=== PATIENT | female | born 1940 | race Caucasian/White ===

== ENCOUNTER → 2018-10-07 12:39 | Outpatient (CLI) | payer MEDICARE, SELFPAY | PROVIDERS: Family Provider Internal Medicine; PCP Internal Medicine; Visit Provider Internal Medicine | DX: M85.88 Other specified disorders of bone density and structure, other site (principal); Z78.0 Asymptomatic menopausal state; Z90.722 Acquired absence of ovaries, bilateral | CPT/HCPCS: 77080 ==

== ENCOUNTER → 2021-04-14 10:33 | Outpatient (CLI) | payer MEDICARE, SELFPAY ==
[2021-04-14 11:44] LABS: Alanine Aminotransferase 12 IU/L (<35); Albumin Globulin Ratio 1.4 (1.0-2.8); Alkaline Phosphatase 98 U/L (38-126); Amylase 52 U/L (30-110); Aspartate Aminotransferase 20 IU/L (14-36); BUN Creatinine Ratio 36.8 (6-22); Bilirubin Total 0.4 mg/dL (0.2-1.3); Blood Urea Nitrogen 21 mg/dL (7-17); Calcium 8.8 mg/dL (8.4-10.2); Carbon Dioxide 29 mmol/L (22-32); Chloride 106 mmol/L (98-107); Estimated Glomerular Filt Rate > 60.0 mL/min (>60); Globulin 2.8 g/dL (1.7-4.1); Glucose 112 mg/dL (80-110); HEMOLYSIS < 15 (0-50); Lipase 46 U/L (23-300); Potassium 4.1 mmol/L (3.4-5.1); Sodium 141 mmol/L (137-145); Total Protein 6.8 g/dL (6.3-8.2)
[2021-04-14 11:49] LABS: RBC Morphology Normal Morphology; Total Cells Counted 100
[2021-04-14 11:52] LABS: Hematocrit 41.8 % (36-46); Hemoglobin 13.8 g/dL (12.0-16.0); Mean Corpuscular HGB Conc 33.1 % (30-36); Mean Corpuscular Hemoglobin 30.2 PG (26-34); Mean Corpuscular Volume 91.3 fL (80-100); Neutrophils Absolute Manual 3762 /uL (3000-5900); Platelet Count 205 X10^3/uL (150-400); Red Blood Cell Count 4.58 X10^6/uL (4.0-5.2); Red Cell Distribution Width 13.5 % (11.6-14.8); White Blood Cell Count 5.7 X10^3/uL (4.5-11.0)
[2021-04-14 13:30] LABS: TSH w/ Reflex to FT4 2.21 uIU/mL (0.47-4.68)
== END ==
PROVIDERS: Family Provider Internal Medicine; PCP Internal Medicine; Referring Provider Internal Medicine; Visit Provider Internal Medicine
DX: R19.7 Diarrhea, unspecified (principal)
CPT/HCPCS: 36415; 80053; 82150; 83690; 84443; 85025

== ENCOUNTER → 2021-04-15 12:47 | Outpatient (CLI) | payer MEDICARE, SELFPAY ==
--- NOTE | 2021-04-15 14:14 | DI.CT.S_ITS ---
PROCEDURE: CT ABDOMEN PELVIS W CON INDICATIONS: llq pain TECHNIQUE: After the administration of oral and intravenous contrast, 5 mm thick sections acquired from the diaphragms to the symphysis. 5 mm thick coronal and sagittal reformats were performed. For radiation dose reduction, the following was used: automated exposure control, adjustment of mA and/or kV according to patient size. COMPARISON: None. FINDINGS: ABDOMEN: Lung bases: Normal. Heart: Mildly enlarged Liver: Low-attenuation presumed hepatic cyst measuring 4.5 cm in the right lobe. Gallbladder: Contains sub 5 mm gravel-like calculi/debris. No CT evidence of acute inflammation. Bile ducts: Normal. Pancreas: Diffuse fatty infiltration of the pancreas and atrophy Spleen: Normal. Adrenals: Normal. Kidneys and Ureters: Bilateral peripelvic cysts. No hydronephrosis. Ureters appear decompressed. Stomach and duodenum: Small hiatal hernia. Bowel: Colonic diverticulosis is seen without evidence of acute complication. Moderate stool seen throughout the colon. Appendix is not clearly identified however no suspicious pericecal inflammatory changes are seen. Other: No free fluid or air. Abdominal nodes: Normal. Aorta and IVC: Normal in size. Scattered vascular calcifications incidentally noted in the aorta. Ventral wall: Tiny fat containing periumbilical hernia. PELVIS: Bladder: Normal. Inguinal region: No hernia. There are incidentally noted left inguinal superficial varices. Pelvic nodes: Normal. Bones: Spondylytic changes and facet arthropathy. No vertebral body compression fracture. Diffuse osteopenia. Grade 1 anterolisthesis of L4 on L5. IMPRESSION: Overall, no acute abnormality. Incidentally noted cholelithiasis. Hepatic cyst Bilateral renal cysts. Small hiatal hernia Incidental colonic diverticulosis. No evidence of acute complication. Chronic fatty infiltration of the pancreas. In this setting would be difficult to exclude a low-grade pancreatitis. Please correlate with pancreatic enzymes if clinically indicated. Additional chronic and incidental findings as above. Dictated by: Tanner Liu M.D. on 04/15/2021 at 15:43 Approved by: Tanner Liu M.D. on 04/15/2021 at 15:49
== END ==
PROVIDERS: Family Provider Internal Medicine; PCP Internal Medicine; Referring Provider Internal Medicine; Visit Provider Internal Medicine
DX: R10.32 Left lower quadrant pain (principal); K44.9 Diaphragmatic hernia without obstruction or gangrene; K76.89 Other specified diseases of liver; N28.1 Cyst of kidney, acquired; K80.20 Calculus of gallbladder without cholecystitis without obstruction; K57.90 Diverticulosis of intestine, part unspecified, without perforation or abscess without bleeding
CPT/HCPCS: 74177; Q9967

== ENCOUNTER 2024-08-31 11:38 | Emergency (ER) | payer MEDICARE, SELFPAY ==
[2024-08-31 11:44] VITALS: BP 136/83; PULSE 90; RESP 16; TEMP 36.6; O2SAT 99; BMI 25.1
--- NOTE | 2024-08-31 12:20 | ED.BACK ---
HPI - Back Pain/Injury <Maria Victoria Nichols PA-C - Last Filed: 08/31/24 13:07> General Chief Complaint: Back Pain/Injury Stated Complaint: back px Time Seen by Provider: 08/31/24 12:20 Source: patient History of Present Illness HPI Narrative: Patient is a very pleasant 83-year-old female that presents to the emergency room department today with her . Patient has had right-sided paraspinal back pain and discomfort for the past 5 days. Patient states that she was attempting to scrub a large standing protein tank with a scrub brush 5 days ago, she was attempting to get a large amount of sap that had collected on the propane tank off. She spent a great deal of the day scrubbing the tank, after scrubbing the tank she went into the house and rested, and now has had discomfort and pain in the right side of her back since. She is having difficulty when she stands, when she attempts to lay down, and when she attempts to roll over. She has been using occasional ibuprofen, occasional Tylenol, and heat with minimal relief. She took a hydrocodone today it did help slightly. She has no signs and symptoms of cauda equina. She has no numbness or tingling in the right lower extremity. She has no midline tenderness. She denies recent injury, trauma or fall. She has no other further complaints. Related Data Home Medications Medication Instructions Recorded Confirmed spironolactone 50 mg tablet 50 mg PO DAILY PRN edema 04/14/21 05/30/24 dicyclomine 10 mg capsule 10 - 20 mg PO Q4-6H PRN diarrhea 04/28/22 05/30/24 hyoscyamine sulfate 0.375 mg 0.375 mg PO BID PRN 04/28/22 05/30/24 tablet,extended release,12 hr Previous Rx's Medication Instructions Recorded amlodipine 10 mg tablet 10 mg PO DAILY #90 tabs 04/14/24 tizanidine 2 mg capsule 2 mg PO Q8H PRN muscle spasticity 08/31/24 #10 caps Allergies Allergy/AdvReac Type Severity Reaction Status Date / Time ampicillin [AMPICILLIN] Allergy Mild RASH Verified 08/31/24 11:48 Sulfa (Sulfonamide Allergy Mild Verified 08/31/24 11:48 Antibiotics) [SULFA (SULFONAMIDE ANTIBIOTICS)] Review of Systems <Maria Victoria Nichols PA-C - Last Filed: 08/31/24 13:07> Review of Systems Narrative: Negative except as above Musculoskeletal Comments: Right-sided lower paraspinal lumbar pain with no red flag symptoms Patient History <Maria Victoria Nichols PA-C - Last Filed: 08/31/24 13:07> Medical History Mixed hyperlipidemia Irritable bowel disease Varicose veins (01/22/15) Venous stasis dermatitis (01/22/15) Peripheral edema Cardiac arrhythmia Essential hypertension Social History marital status: number of children: 1 household members: spouse lives independently: Yes caregiver/support person: No housing: house pets and animals: Yes education level: college occupational status: other current occupational exposures/hazards: No Previous occupational history: [employer]. travel history: recent leisure activities: other Smoking Status: Never smoker Tobacco: How many years used: 0 quit status: quit date established second hand exposure: No alcohol intake: current substance use type: does not use Smoking Status: Never smoker Substance Use Type: does not use Exam <Maria Victoria Nichols PA-C - Last Filed: 08/31/24 13:07> Initial Vital Signs Initial Vital Signs: Vital Signs Temperature 97.9 F 08/31/24 11:44 Pulse Rate 90 08/31/24 11:44 Respiratory Rate 16 08/31/24 11:44 Blood Pressure 136/83 08/31/24 11:44 Pulse Oximetry 99 08/31/24 11:44 Oxygen Delivery Method Room Air 08/31/24 11:44 Reviewed Const General: cooperative, healthy appearing, comfortable, well developed, well groomed, No acute distress, No in distress and No anxious Eyes General: Yes appearance normal, both eyes and all related structures Pupils: PERRL EOM: EOM intact bilaterally Back/Spine/Pelvis Back: normal to inspection, back tenderness and No CVA tenderness Thoracic/Lumbar Spine: thoracic and lumbar spine normal to inspection, pain with thoraco-lumbar ROM, paraspinal tenderness and thoraco-lumbar ROM limited Skin Other: Warm pink and dry, Neuro General: patient alert, patient awake, patient oriented x3 and oriented Cranial Nerves: CN's II-XI intact bilaterally Speech: speech normal Extrem Other: Patient able to stand up from the wheelchair under own power using her cane. Patient back exam she has some right-sided paraspinal discomfort and pain, no midline tenderness. She has no pain with straight leg, she has no pain with lifting her right knee to the ceiling. She has no cervical or thoracic midline tenderness. She has no lumbar midline tenderness. She has some buttock tenderness on palpation and some right-sided gluteus discomfort with palpation. Patient is able to ambulate with her cane with minimal discomfort. She is some discomfort with forward flexion. Upper extremity range of motion strength pulses and cap refill are preserved. Psych Other: Patient's appearance, mental status speech, mood, affect, attitude, thought process, thought content and judgment are all appropriate. <Hema Marquez MD - Last Filed: 08/31/24 21:56> Initial Vital Signs Initial Vital Signs: Vital Signs Temperature 97.9 F 08/31/24 11:44 Pulse Rate 90 08/31/24 11:44 Respiratory Rate 16 08/31/24 11:44 Blood Pressure 136/83 08/31/24 11:44 Pulse Oximetry 99 08/31/24 11:44 Oxygen Delivery Method Room Air 08/31/24 11:44 Scores <Maria Victoria Ncihols PA-C - Last Filed: 08/31/24 13:07> GCS Citation: 15 Course <Maria Victoria Nichols PA-C - Last Filed: 08/31/24 13:07> Vital Signs Vital signs: Vital Signs - 8 hr 08/31/24 11:44 08/31/24 12:39 Temperature 97.9 F Pulse Rate 90 80 Respiratory Rate 16 14 Blood Pressure 136/83 103/66 Pulse Oximetry 99 98 Oxygen Delivery Method Room Air Room Air <Hema Marquez MD - Last Filed: 08/31/24 21:56> Vital Signs Vital signs: Vital Signs - 8 hr 08/31/24 11:44 08/31/24 12:39 Temperature 97.9 F Pulse Rate 90 80 Respiratory Rate 16 14 Blood Pressure 136/83 103/66 Pulse Oximetry 99 98 Oxygen Delivery Method Room Air Room Air MDM - Back Pain/Injury <Maria Victoria Nichols PA-C - Last Filed: 08/31/24 13:07> MDM Narrative Medical decision making narrative: Pleasant 83-year-old female presents to the emergency room department with her , she has had a musculoskeletal paraspinal right-sided lower lumbar and right buttock pain for 5 days after spending the day cleaning a stand-up propane tank of sap. Her has been attempting to get her to do supportive therapy [id number] such as topical preparations and taking Tylenol and ibuprofen more on a scheduled basis however the patient has been resistant. She has been using occasional Tylenol ibuprofen and occasional heat. However she presents today with increasing discomfort and pain, so uncomfortable for her to roll over in bed, it is difficult for her to get up from a sitting position. She is attempting to keep active. She does have a history of a previous laminectomy when she was younger. No other surgical interventions in her back. She does not have any red flag symptoms. She appears to be under treating her current symptoms. She is attempting to keep active. Currently at this time I do not think an x-ray is warranted there has been no injury, trauma or fall. She does not have any red flag symptoms. She does not have any radiculopathy symptoms she has no weakness numbness or tingling of the lower extremities. Do not think an x-ray is going to [place] us any information currently at this time examination shows she is muscle spasm and muscle pain associated with paraspinal exam and musculoskeletal discomfort in the right buttock area. We have discussed in great detail [id number] therapy, stretching, muscle treatment at home. We will also discuss topical medications, we have also discussed ibuprofen usage as well as Tylenol usage. I have prescribed a muscle relaxer for her. I have gone over with her in great detail as well as her care that she can do at home, I have also discussed how long most likely the symptoms that she currently has will remain as well as how long it will take for them to improve. Patient understands information education given here in the emergency room department. She is discharged in stable condition. Supportive therapy education ED precautions please see below Differential diagnosis; lumbar spasm, lumbar strain, paraspinal muscle spasm, myofascial strain, sprain. Overuse of lower lumbar muscles. In proper body mechanics associated with cleaning. Discharge Plan Departure Patient Disposition: Home Clinical Impression: Hordeolum externum of right lower eyelid Acute lumbosacral myofascial strain Qualifiers: Encounter type: initial encounter Qualified Code(s): S39.012A - Strain of muscle, fascia and tendon of lower back, initial encounter Strain of lumbar paraspinal muscle Qualifiers: Encounter type: initial encounter Qualified Code(s): S39.012A - Strain of muscle, fascia and tendon of lower back, initial encounter Instructions: DI for Low Back Pain, DI for Back Spasm, DI for Back Strain or Sprain Activity Restrictions/Additional Instructions: 1. Please keep active 2. Ambulate in the home or outside at least 10-15 minutes every 2 hours 3. Take the medications as prescribed be careful with a muscle relaxer it causes sedation no drinking, driving, or operating power equipment. Be very careful with it can cause her to be unsteady, do not want to fall 4. Topical preparations such as diclofenac, Biofreeze, capsaicin, Aspercreme, Salonpas can be used to give local relief. 5. You can take 400-600 mg of ibuprofen/Motrin 3 times a day for discomfort and pain. You can also take Tylenol 500 mg 3 times a day for discomfort and pain. 6. Ice, heat, gentle massage. Slow stretching while sitting in the chair on the couch. 7. This usually takes anywhere from 7-10 days to improve. 8. Please be careful in the near future when attempting to do outside activities take your time. Do not overdo it. 9. Return to the emergency department if you have loss of bowel or bladder, numbness tingling weakness to the lower extremities. 10. Please make an appointment to follow up with her primary care doctor as needed. 11. Return to the emergency department as needed. 12. Prescription has been sent to the [facility] in [place]. Prescriptions: New tizanidine 2 mg capsule 2 mg PO Q8H PRN (Reason: muscle spasticity) Qty: 10 0RF No Action spironolactone 50 mg tablet 50 mg PO DAILY PRN (Reason: edema) amlodipine 10 mg tablet 10 mg PO DAILY Qty: 90 3RF dicyclomine 10 mg capsule 10 - 20 mg PO Q4-6H PRN (Reason: diarrhea) Patient Comments: TAKE ONE TO TWO CAPSULES EVERY 4 - 6 HRS NEEDED FOR DIARRHEA hyoscyamine sulfate 0.375 mg tablet extended release 12 hr 0.375 mg PO BID PRN Patient Comments: TAKE ONE BY MOUTH TWICE A DAY NEEDED Referrals: Blue Cruz MD [Primary Care Provider] - Stand Alone Forms: Patient Portal/API ED Sign-out <Hema Marquez MD - Last Filed: 08/31/24 21:56> Cosign ED Attending Cosignature Attestation: I was immediately available in the department for consultation. This documentation has been reviewed and I agree with assessment and plan. Supervised by Hema Marquez MD
[2024-08-31 12:39] VITALS: BP 103/66; PULSE 80; RESP 14; O2SAT 98
== END 2024-08-31 12:41 | disposition home or self-care (01) ==
PROVIDERS: Emergency Provider Physician Assistant; Family Provider Internal Medicine; PCP Internal Medicine
DX: S39.012A Strain of muscle, fascia and tendon of lower back, initial encounter (principal); X58.XXXA Exposure to other specified factors, initial encounter; H00.012 Hordeolum externum right lower eyelid
CPT/HCPCS: 99281

== ENCOUNTER 2024-09-05 09:59 | Emergency (ER) | payer MEDICARE, SELFPAY ==
[2024-09-05 10:00] VITALS: BP 161/80; PULSE 88; RESP 15; TEMP 36.4; O2SAT 98; BMI 25.8
--- NOTE | 2024-09-05 10:08 | ED_ITS ---
HPI - Back Pain/Injury General Chief Complaint: Back Pain/Injury Stated Complaint: back pain Time Seen by Provider: 09/05/24 10:08 Source: patient History of Present Illness HPI Narrative: Patient is a 83-year-old female history of hypertension chronic low back pain comes into the ED for evaluation of acute on chronic exacerbation of low back pain. Was seen here several days ago for the similar symptoms states that she was attempting to scrub a large tank with a brush and started having some low back pain. She denies any numbness tingling weakness down bilateral lower extremities she is able to stand bear weight and ambulate at her baseline. She denies any bowel or urinary retention or incontinence. She states that she has been taking the medication as prescribed but is having persistent symptoms and states that she did not have imaging therefore comes into the ED for further evaluation treatment. She also states that she had had surgery in the past to her low back so she is worried that something might be wrong with her previous surgery. She denies any other symptoms at this time. Related Data Home Medications Medication Instructions Recorded Confirmed spironolactone 50 mg tablet 50 mg PO DAILY PRN edema 04/14/21 05/30/24 dicyclomine 10 mg capsule 10 - 20 mg PO Q4-6H PRN diarrhea 04/28/22 05/30/24 hyoscyamine sulfate 0.375 mg 0.375 mg PO BID PRN 04/28/22 05/30/24 tablet,extended release,12 hr Previous Rx's Medication Instructions Recorded amlodipine 10 mg tablet 10 mg PO DAILY #90 tabs 04/14/24 tizanidine 2 mg capsule 2 mg PO Q8H PRN muscle spasticity 08/31/24 #10 caps diazepam 2 mg tablet (Valium) 2 mg PO BID PRN muscle spasm 5 09/05/24 days #10 tabs prednisone 20 mg tablet 20 mg PO DAILY 5 days #5 tabs 09/05/24 Allergies Allergy/AdvReac Type Severity Reaction Status Date / Time ampicillin [AMPICILLIN] Allergy Mild RASH Verified 09/05/24 10:05 Sulfa (Sulfonamide Allergy Mild Verified 09/05/24 10:05 Antibiotics) [SULFA (SULFONAMIDE ANTIBIOTICS)] Review of Systems Review of Systems Narrative: General: Denies fever, chills, weight loss HEENT: Denies headache, eye drainage, eye irritation, head trauma, sore throat, voice change Cardiovascular: Denies any chest pain, palpitations, shortness of breath, tachycardia Respiratory: Denies any shortness of breath, cough, wheeze, stridor GI/: Denies any abdominal pain, nausea, vomiting, diarrhea, bright red blood per rectum, melanotic stools, urinary frequency, urinary retention, dysuria, hematuria MSK: Positive low back pain Skin: Denies any rashes, lesions, discoloration Neuro: Denies any headache, lightheadedness, dizziness, fainting, weakness Psych: Denies SI/HI Patient History Medical History Mixed hyperlipidemia Irritable bowel disease Varicose veins (01/22/15) Venous stasis dermatitis (01/22/15) Peripheral edema Cardiac arrhythmia Essential hypertension Social History marital status: number of children: 1 household members: spouse lives independently: Yes caregiver/support person: No housing: house pets and animals: Yes education level: college occupational status: other current occupational exposures/hazards: No Previous occupational history: [employer]. travel history: recent leisure activities: other Smoking Status: Never smoker Tobacco: How many years used: 0 quit status: quit date established second hand exposure: No alcohol intake: current substance use type: does not use Smoking Status: Never smoker alcohol intake frequency: 0-2 drinks per day Substance Use Type: does not use Exam Narrative Exam Narrative: General: Cooperative, comfortable, well-developed, not in acute distress HEENT: Normocephalic, atraumatic, PERRLA, normal sclera, eyelids normal, Neck: Active full range of motion, atraumatic Chest: Normal to inspection, negative crepitus, no overlying erythema ecchymosis Respiratory: Normal respiratory effort, not in acute respiratory distress, clear to auscultation bilaterally negative cough, wheeze, tachypnea, rhonchi, rales Cardiology: Regular rate rhythm negative gallop, murmur, rubs GI/: Normal to inspection, soft, nonrigid, no tenderness to palpation, exam deferred MSK: Full range of active range of motion of all 4 extremities, atraumatic, there is no midline tenderness to palpation of the thoracic or lumbar spine there is mild tenderness to palpation of the paraspinal muscles on the right side no overlying erythema ecchymosis or rashes. She is able to stand bear weight ambulate at her baseline. Skin: No rashes lesions noted Neuro: Alert awake oriented x3, moves all 4 extremities spontaneously, cranial nerves intact, able to answer all questions appropriately follows commands appropriately Psych: Cooperative, negative suicidal or homicidal ideations Initial Vital Signs Initial Vital Signs: Vital Signs Temperature 97.6 F 09/05/24 10:00 Pulse Rate 88 09/05/24 10:00 Respiratory Rate 15 09/05/24 10:00 Blood Pressure 161/80 H 09/05/24 10:00 Pulse Oximetry 98 09/05/24 10:00 Oxygen Delivery Method Room Air 09/05/24 10:00 Course Orders Ordered: ED Orders 09/05/24 10:18 CT lumbar spine wo con Stat Discontinued Medications Dexamethasone (Dexamethasone 10 Mg/Ml Vial) 10 mg PO NOW ONE Stop: 09/05/24 10:19 Last Admin: 09/05/24 10:40 Dose: Not Given Documented By: MP Dexamethasone (Dexamethasone 4 Mg Tablet) 10 mg PO NOW ONE Stop: 09/05/24 10:40 Last Admin: 09/05/24 10:41 Dose: 10 mg Documented By: MP Diazepam (Diazepam 2 Mg Tablet) 2 mg PO NOW ONE Stop: 09/05/24 10:19 Last Admin: 09/05/24 10:32 Dose: 2 mg Documented By: MP Ketorolac Tromethamine (Ketorolac 30 Mg/Ml Vial) 30 mg IM NOW ONE Stop: 09/05/24 10:19 Last Admin: 09/05/24 10:32 Dose: 30 mg Documented By: MP Vital Signs Vital signs: Vital Signs - 8 hr 09/05/24 10:00 Temperature 97.6 F Pulse Rate 88 Respiratory Rate 15 Blood Pressure 161/80 H Pulse Oximetry 98 Oxygen Delivery Method Room Air MDM - Back Pain/Injury Differential Diagnosis Differential diagnosis: Likely lumbar radiculopathy, strain of lumbar region and other (Degenerative disc disease) Imaging Data CT lumbar: Radiologist's Impression: [address] [address] [address] Scan Report Signed Patient: Emilia Tavera MR#: [id number] : 1940 Acct:[id number] Age/Sex: 83 / F Date of Service: 09/05/24 Loc: ED Accession Number: [id number] Procedure: CT lumbar spine wo con Ordering Provider: Celestine Chapman D.O. PROCEDURE: CT LUMBAR SPINE WO CON INDICATIONS: low back pain TECHNIQUE: Noncontrast 3 mm thick sections acquired from the T12 level to the sacrum. Sagittal and coronal reformats were constructed. For radiation dose reduction, the following was used: automated exposure control. COMPARISON: [facility], CT, CT ABDOMEN PELVIS W CON, 04/15/2021, 13:59. FINDINGS: Image quality: Excellent. Bones: No suspicious lytic or blastic bony lesions. Mild dextroconvex scoliotic curvature is seen. Grade 1 L4-L5 anterolisthesis is seen, without associated pars defects. At the superior endplate of T12, there is a compression deformity seen, with 40% loss of height centrally. This is new compared to 2020 and demonstrates a subacute appearance. Posterior displacement fracture fragments can be seen, measuring 2 mm. T12-L1: No significant abnormality is seen. L1-L2: Level within normal limits. L2-L3: The disc height is well preserved. Mild generalized disc bulge is seen. Moderate facet joint hypertrophy is seen. Mild bilateral neural foraminal narrowing is seen. Moderate central canal narrowing is seen. L3-L4: The disc height is well preserved. Moderate generalized disc bulge is seen. Moderate facet joint hypertrophy is seen. Mild bilateral neural foraminal narrowing is seen. Mac row moderate sent L4-L5: The disc height is well preserved. Moderate disc bulge is seen. Prominent facet hypertrophy can be seen. There is at least moderate bilateral neural foraminal narrowing, left worse than right. At least moderate central canal narrowing is seen at this level. L5-S1: Mild loss of disc height is seen. Endplate irregularity and sclerosis can be seen. Mild generalized disc bulge is seen. Moderate facet joint hypertrophy is seen. Moderate bilateral neural foraminal narrowing is seen. No significant central canal narrowing is seen. Soft tissues: No retroperitoneal masses or hematomas. There is a water density cyst along the posterior right liver. Kidney stone there is a 2 mm nonobstructing left-sided kidney stone. Visualized aorta is normal in caliber. Atherosclerotic calcification is noted. Colonic diverticulosis is seen, without findings of active diverticulitis. IMPRESSION: At the T12 level, there is a subacute appearing fracture seen, with 2 mm posterior displacement fracture fragments. Multiple levels of lumbar spine degenerative change can be seen, which are overall worst at the L4-L5 and L5-S1 levels. Additional findings: Liver cyst 2 mm nonobstructing left-sided Diverticulosis, without active diverticulitis MDM Narrative Medical decision making narrative: Patient is a 83-year-old female history of hypertension low back pain presents for persistent low back pain. States that she did excessive work a few weeks ago and is having persistent pain but denies any red flag signs for cauda equina. Patient was given Valium, Decadron and Toradol here in the emergency department with improvement of symptoms. CT scan showed subacute fracture of the T12, however on exam patient without any tenderness to palpation of the T12 region, after administration of medication she had resolution of symptoms. She is still able to stand bear weight ambulate at her baseline. She still without any neurological deficits. She was instructed follow up with PCP and orthopedic surgeon outpatient setting she will be safe for discharge home with outpatient follow up Discharge Plan Departure Patient Disposition: Home Clinical Impression: Compression fracture of T12 vertebra, Acute exacerbation of chronic low back pain Activity Restrictions/Additional Instructions: Please follow up with Orthopedic surgery in outpatient setting Please read the discharge instructions sheet carefully and bring all papers to all doctor follow-up visits, as it may contain information that your doctor may want to see. Disease processes change and evolve, if your symptoms worsen or if you develop any new symptoms that are concerning to you please return for evaluation. Your evaluation today does not show any evidence of any life- threatening/serious illnesses requiring admission to the hospital or surgery. Please follow-up with your doctor for re-evaluation in approximately 1 day. Seek immediate medical attention for any worrisome symptoms. Prescriptions: New prednisone 20 mg tablet 20 mg PO DAILY 5 Days Qty: 5 0RF diazepam [Valium] 2 mg tablet 2 mg PO BID PRN (Reason: muscle spasm) 5 Days Qty: 10 0RF No Action spironolactone 50 mg tablet 50 mg PO DAILY PRN (Reason: edema) amlodipine 10 mg tablet 10 mg PO DAILY Qty: 90 3RF dicyclomine 10 mg capsule 10 - 20 mg PO Q4-6H PRN (Reason: diarrhea) Patient Comments: TAKE ONE TO TWO CAPSULES EVERY 4 - 6 HRS NEEDED FOR DIARRHEA hyoscyamine sulfate 0.375 mg tablet extended release 12 hr 0.375 mg PO BID PRN Patient Comments: TAKE ONE BY MOUTH TWICE A DAY NEEDED tizanidine 2 mg capsule 2 mg PO Q8H PRN (Reason: muscle spasticity) Qty: 10 0RF Referrals: Yvonne Lockett MD [Physician] - Blue Cruz MD [Primary Care Provider] - Stand Alone Forms: Patient Portal/API
--- NOTE | 2024-09-05 10:18 | DI.CT.S_ITS ---
PROCEDURE: CT LUMBAR SPINE WO CON INDICATIONS: low back pain TECHNIQUE: Noncontrast 3 mm thick sections acquired from the T12 level to the sacrum. Sagittal and coronal reformats were constructed. For radiation dose reduction, the following was used: automated exposure control. COMPARISON: [facility], CT, CT ABDOMEN PELVIS W CON, 04/15/2021, 13:59. FINDINGS: Image quality: Excellent. Bones: No suspicious lytic or blastic bony lesions. Mild dextroconvex scoliotic curvature is seen. Grade 1 L4-L5 anterolisthesis is seen, without associated pars defects. At the superior endplate of T12, there is a compression deformity seen, with 40% loss of height centrally. This is new compared to 2020 and demonstrates a subacute appearance. Posterior displacement fracture fragments can be seen, measuring 2 mm. T12-L1: No significant abnormality is seen. L1-L2: Level within normal limits. L2-L3: The disc height is well preserved. Mild generalized disc bulge is seen. Moderate facet joint hypertrophy is seen. Mild bilateral neural foraminal narrowing is seen. Moderate central canal narrowing is seen. L3-L4: The disc height is well preserved. Moderate generalized disc bulge is seen. Moderate facet joint hypertrophy is seen. Mild bilateral neural foraminal narrowing is seen. Mac row moderate sent L4-L5: The disc height is well preserved. Moderate disc bulge is seen. Prominent facet hypertrophy can be seen. There is at least moderate bilateral neural foraminal narrowing, left worse than right. At least moderate central canal narrowing is seen at this level. L5-S1: Mild loss of disc height is seen. Endplate irregularity and sclerosis can be seen. Mild generalized disc bulge is seen. Moderate facet joint hypertrophy is seen. Moderate bilateral neural foraminal narrowing is seen. No significant central canal narrowing is seen. Soft tissues: No retroperitoneal masses or hematomas. There is a water density cyst along the posterior right liver. Kidney stone there is a 2 mm nonobstructing left-sided kidney stone. Visualized aorta is normal in caliber. Atherosclerotic calcification is noted. Colonic diverticulosis is seen, without findings of active diverticulitis. IMPRESSION: At the T12 level, there is a subacute appearing fracture seen, with 2 mm posterior displacement fracture fragments. Multiple levels of lumbar spine degenerative change can be seen, which are overall worst at the L4-L5 and L5-S1 levels. Additional findings: Liver cyst 2 mm nonobstructing left-sided Diverticulosis, without active diverticulitis Dictated by: Cayetano Wagner M.D. on 09/05/2024 at 10:23 Approved by: Cayetano Wagner M.D. on 09/05/2024 at 10:30
[2024-09-05] MEDS: diazePAM 2 MG TABLET PO (10:32)
[2024-09-05] MEDS: KETOROLAC 30 MG/ML VIAL IM (10:32)
[2024-09-05] MEDS: dexAMETHasone 4 MG TABLET 10 MG PO (10:41)
== END 2024-09-05 12:11 | disposition home or self-care (01) ==
PROVIDERS: Emergency Provider Student in an Organized Health Care Education/Training Program; Family Provider Internal Medicine; PCP Internal Medicine
DX: M48.54XA Collapsed vertebra, not elsewhere classified, thoracic region, initial encounter for fracture (principal); G89.29 Other chronic pain; M54.50 Low back pain, unspecified
CPT/HCPCS: 72131; 96372; 99283; 99284; J1100; J1885

== ENCOUNTER → 2024-10-12 10:17 | Outpatient (CLI) | payer MEDICARE, SELFPAY ==
[2024-10-12 10:51] LABS: Add Manual Diff / Slide Review NO; Basophils Absolute Auto 0 /uL (0-100); Basophils Percent Auto 0.4 % (0-2); Eosinophils Absolute Auto 100 /uL (0-450); Eosinophils Percent Auto 1.2 % (2-4); Hematocrit 42.8 % (36-46); Hemoglobin 13.9 g/dL (12.0-16.0); Lymphocytes Absolute Auto 900 /uL (1100-4500); Lymphocytes Percent Auto 11.8 % (25-40); Mean Corpuscular HGB Conc 32.5 % (30-36); Mean Corpuscular Hemoglobin 29.5 PG (26-34); Mean Corpuscular Volume 90.7 fL (80-100); Monocytes Absolute Auto 500 /uL (0-900); Monocytes Percent Auto 6.7 % (3-14); Neutrophils Absolute Auto 6200 /uL (1500-7000); Neutrophils Percent Auto 79.9 % (50-75); Platelet Count 294 X10^3/uL (150-400); Red Blood Cell Count 4.72 X10^6/uL (4.0-5.2); Red Cell Distribution Width 13.4 % (11.6-14.8); White Blood Cell Count 7.8 X10^3/uL (4.5-11.0)
[2024-10-12 11:13] LABS: Alanine Aminotransferase 19 IU/L (<35); Albumin Globulin Ratio 1.4 (1.0-2.8); Alkaline Phosphatase 123 U/L (38-126); Aspartate Aminotransferase 22 IU/L (14-36); BUN Creatinine Ratio 35.5 (6-22); Bilirubin Total 0.5 mg/dL (0.2-1.3); Blood Urea Nitrogen 22 mg/dL (7-17); Calcium 9.6 mg/dL (8.4-10.2); Carbon Dioxide 26 mmol/L (22-32); Chloride 105 mmol/L (98-107); Estimated Glomerular Filt Rate > 60 mL/min (>60); Globulin 2.8 g/dL (1.7-4.1); Glucose 108 mg/dL (80-110); HEMOLYSIS < 15 (0-50); Potassium 3.5 mmol/L (3.4-5.1); Sodium 139 mmol/L (137-145); Total Protein 6.8 g/dL (6.3-8.2)
[2024-10-12 11:30] LABS: Free T3, Triiodothyronine Free 3.27 pg/mL (2.77-5.27); Free T4, Direct Thyroxine 1.38 ng/dL (0.78-2.19)
[2024-10-12 11:43] LABS: Thyroid Stimulating Hormone 1.43 uIU/mL (0.47-4.68)
== END ==
PROVIDERS: Family Provider Internal Medicine; PCP Internal Medicine; Referring Provider Internal Medicine; Visit Provider Internal Medicine
DX: E78.2 Mixed hyperlipidemia (principal); I10 Essential (primary) hypertension; R63.4 Abnormal weight loss; D64.9 Anemia, unspecified; E03.9 Hypothyroidism, unspecified; F41.9 Anxiety disorder, unspecified; F32.A Depression, unspecified
CPT/HCPCS: 36415; 80053; 84439; 84443; 84481; 85025

== ENCOUNTER → 2024-11-13 12:01 | Outpatient (CLI) | payer MEDICARE, SELFPAY ==
--- NOTE | 2024-11-13 12:04 | DI.RAD.S_ITS ---
PROCEDURE: XR LUMBAR SPINE 2-3V INDICATIONS: back pain TECHNIQUE: 3 views of the lumbar spine were acquired. COMPARISON: [facility], CT, CT LUMBAR SPINE WO CON, 09/05/2024, 10:50. FINDINGS: Bones: 5 [id number] vertebrae are present. There is mild levoscoliosis of thoracolumbar spine centered at L1 level. 1.2 cm anterolisthesis of L4 on L5 is seen. Age indeterminate anterior wedge compression deformities are noted at T12, L1 and L3 levels with up to 70% loss of T12 vertebral body height anteriorly and up to 40% loss of L3 vertebral body height anteriorly. Mild superior endplate compression deformity at L4 level is also seen. No vertebral body compression fractures. Degenerative endplate changes are noted throughout lower thoracic and lumbar spine. No suspicious bony lesions. Soft tissues: Overlying bowel gas pattern is normal. No suspicious soft tissue calcifications. IMPRESSION: Age indeterminate superior endplate compression deformities involving T12, L1, L3 and L4 levels. Compared to 09/05/2024 study, there is interval further loss of T12, and L3 vertebral body height. L1 vertebral body height is unchanged from prior study. L4 superior endplate compression is new since previous study. 1.2 cm anterolisthesis of L4 on L5. Degenerative endplate changes throughout lower thoracic and lumbar spine. Dictated by: Shant Martinez M.D. on 11/13/2024 at 14:38 Approved by: Shant Martinez M.D. on 11/13/2024 at 14:58
== END ==
PROVIDERS: Family Provider Internal Medicine; PCP Internal Medicine; Referring Provider Internal Medicine; Visit Provider Internal Medicine
DX: M48.50XA Collapsed vertebra, not elsewhere classified, site unspecified, initial encounter for fracture (principal); M43.8X4 Other specified deforming dorsopathies, thoracic region; M43.8X6 Other specified deforming dorsopathies, lumbar region; M43.16 Spondylolisthesis, lumbar region; M47.814 Spondylosis without myelopathy or radiculopathy, thoracic region; M47.816 Spondylosis without myelopathy or radiculopathy, lumbar region
CPT/HCPCS: 72100

== ENCOUNTER 2024-11-19 03:53 | Emergency (ER) | payer MEDICARE, SELFPAY ==
[2024-11-19 03:53] VITALS: BP 141/73; PULSE 76; RESP 16; TEMP 36.4; O2SAT 96; BMI 25.8
--- NOTE | 2024-11-19 04:16 | DI.RAD.S_ITS ---
PROCEDURE: XR LUMBAR SPINE 2-3V INDICATIONS: lower back pain TECHNIQUE: 3 views of the lumbar spine were acquired. COMPARISON: [facility], , XR LUMBAR SPINE 2-3V, 11/13/2024, 12:15. FINDINGS: Bones: 5 [id number] vertebrae are present. Grade 1 anterolisthesis of L4 on L5. Decreased osseous mineralization. Stable moderate compression deformity of L3. Stable severe compression deformity of T12. No suspicious bony lesions. Redemonstration of multilevel degenerative changes of the lumbar spine. Soft tissues: Overlying bowel gas pattern is normal. No suspicious soft tissue calcifications. Atherosclerotic vascular calcifications. IMPRESSION: Stable T12 and L3 compression deformities. No new vertebral body compression deformities. Redemonstration of multilevel degenerative changes of the spine. Findings are concordant with preliminary interpretation provided by [facility]. Dictated by: Ranulfo Quintero M.D. on 11/19/2024 at 8:08 Approved by: Ranulfo Quintero M.D. on 11/19/2024 at 8:10
--- NOTE | 2024-11-19 04:16 | ED.BACK ---
HPI - Back Pain/Injury General Chief Complaint: Back Pain/Injury Stated Complaint: back pain Time Seen by Provider: 11/19/24 04:02 Source: patient and EMS History of Present Illness HPI Narrative: Patient is an 83-year-old female. Has known lumbar compression fractures. States she has been doing well with physical therapy until a day or so ago when she was in the shower and she bent over and had increasing discomfort in her back. She does have pain medication at home (hydrocodone) however she states it makes her constipated. She states she had a very difficult time sleeping last night and was unable to sit up in bed because of the discomfort. She has not fallen. No urinary symptoms. She would habits. No radiation into her legs. She did received Toradol by EMS prior to arrival Related Data Home Medications Medication Instructions Recorded Confirmed dicyclomine 10 mg capsule 10 - 20 mg PO Q4-6H PRN diarrhea 04/28/22 11/13/24 hyoscyamine sulfate 0.375 mg 0.375 mg PO BID PRN 04/28/22 11/13/24 tablet,extended release,12 hr spironolactone 50 mg tablet 50 mg PO DAILY 11/13/24 11/13/24 Previous Rx's Medication Instructions Recorded amlodipine 10 mg tablet 10 mg PO DAILY #90 tabs 04/14/24 bupropion HCl 300 mg 24 hr tablet, 300 mg PO QAM #90 tabs 11/13/24 extended release docusate sodium 100 mg capsule 100 mg PO BID #30 caps 11/19/24 (Colace) Allergies Allergy/AdvReac Type Severity Reaction Status Date / Time ampicillin [AMPICILLIN] Allergy Mild RASH Verified 11/19/24 04:04 Sulfa (Sulfonamide Allergy Mild Verified 11/19/24 04:04 Antibiotics) [SULFA (SULFONAMIDE ANTIBIOTICS)] Review of Systems Review of Systems ROS Unobtainable: All systems reviewed & are unremarkable except as noted in HPI and below Patient History Medical History Anxiety and depression Mixed hyperlipidemia Irritable bowel disease Varicose veins (01/22/15) Venous stasis dermatitis (01/22/15) Peripheral edema Cardiac arrhythmia Essential hypertension Social History marital status: number of children: 1 household members: spouse lives independently: Yes caregiver/support person: No housing: house pets and animals: Yes education level: college occupational status: other current occupational exposures/hazards: No Previous occupational history: Animal Shelter Worker. travel history: recent leisure activities: other Smoking Status: Never smoker Tobacco: How many years used: 0 quit status: quit date established second hand exposure: No alcohol intake: current substance use type: does not use Smoking Status: Never smoker alcohol intake frequency: 0-2 drinks per day Exam Initial Vital Signs Initial Vital Signs: Vital Signs Temperature 97.6 F 11/19/24 03:53 Pulse Rate 76 11/19/24 03:53 Respiratory Rate 16 11/19/24 03:53 Blood Pressure 141/73 H 11/19/24 03:53 Pulse Oximetry 96 11/19/24 03:53 Oxygen Delivery Method Room Air 11/19/24 03:53 Const General: No ill appearing HENMT Head: normal to inspection and normocephalic Resp Effort & Inspection: normal respiratory effort Cardio Rate: regular rate Back/Spine/Pelvis Thoracic/Lumbar Spine: paraspinal tenderness, No thoracic spinal tenderness and No lumbar spinal tenderness Neuro General: patient alert and patient awake Course Orders Ordered: ED Orders 11/19/24 04:16 XR lumbar spine 2-3V Stat Discontinued Medications Hydrocodone Bitart/Acetaminophen (Hydrocodone/Acet 5/325 Tablet) 1 tab PO NOW ONE Stop: 11/19/24 04:17 Last Admin: 11/19/24 04:50 Dose: 1 tab Documented By: BLANCA Vital Signs Vital signs: Vital Signs - 8 hr 11/19/24 03:53 Temperature 97.6 F Pulse Rate 76 Respiratory Rate 16 Blood Pressure 141/73 H Pulse Oximetry 96 Oxygen Delivery Method Room Air MDM - Back Pain/Injury Imaging Data Lumbar spine x-ray: Radiologist's Impression: Compression deformities of T12 and L3 vertebral bodies. Anterior listhesis of L3 on L4 and L4 on L5. [facility] Narrative Medical decision making narrative: Patient has known lumbar compression fractures which are once again seen on the x-ray today. She reports some improvement after the Toradol. She was ambulatory after pain medication here in the ER. No new neurologic symptoms. Will discharge home with instructions to take the pain medication that she has a home as needed. We discussed the use of a stool softener try to prevent constipation. No indication for admission to the hospital or emergent orthopedic consultation. Patient expressed understanding. Discharge Plan Departure Patient Disposition: Home Clinical Impression: Compression fracture of lumbar vertebra, Low back pain Instructions: DI for Low Back Pain Activity Restrictions/Additional Instructions: I do recommend that you contact your primary care doctor for a follow-up. You can continue with physical therapy as directed. I do recommend that you take the pain medication as directed as well. Return to the emergency department for new symptoms. Prescriptions: New docusate sodium [Colace] 100 mg capsule 100 mg PO BID Qty: 30 0RF No Action amlodipine 10 mg tablet 10 mg PO DAILY Qty: 90 3RF dicyclomine 10 mg capsule 10 - 20 mg PO Q4-6H PRN (Reason: diarrhea) Patient Comments: TAKE ONE TO TWO CAPSULES EVERY 4 - 6 HRS NEEDED FOR DIARRHEA hyoscyamine sulfate 0.375 mg tablet extended release 12 hr 0.375 mg PO BID PRN Patient Comments: TAKE ONE BY MOUTH TWICE A DAY NEEDED spironolactone 50 mg tablet 50 mg PO DAILY bupropion HCl 300 mg tablet extended release 24 hr 300 mg PO QAM Qty: 90 3RF Referrals: Blue Cruz MD [Primary Care Provider] - Stand Alone Forms: Patient Portal/API/Survey
[2024-11-19] MEDS: HYDROCODONE/ACET 5/325 TABLET 1 TAB PO (04:50)
[2024-11-19 06:47] VITALS: BP 124/64; PULSE 72; RESP 16; O2SAT 97
== END 2024-11-19 06:47 | disposition home or self-care (01) ==
PROVIDERS: Emergency Provider Emergency Medicine; Family Provider Internal Medicine; PCP Internal Medicine
DX: M48.56XA Collapsed vertebra, not elsewhere classified, lumbar region, initial encounter for fracture (principal)
CPT/HCPCS: 72100; 99283

== ENCOUNTER → 2025-05-30 09:00 | Outpatient (CLI) | payer MEDICARE, SELFPAY ==
--- NOTE | 2025-05-30 09:04 | DI.RAD.S_ITS ---
PROCEDURE: XR LUMBAR SPINE 2-3V INDICATIONS: Cont'd Back Pain TECHNIQUE: 3 views of the lumbar spine were acquired. COMPARISON: [facility], CR, XR LUMBAR SPINE 2-3V, 11/19/2024, 4:23. FINDINGS: Lumbar spine curvature and alignment: Grade 1 L4-5 spondylolisthesis due to degenerative facet disease has progressed since previous study in 2020 for. Slight leftward curve lower thoracic and upper lumbar spine again noted. Bones: Severe T12 compression fracture is unchanged. Mild L1, moderate L2, moderate L3 and severe L4 compression fractures are new or have worsened. Disc spaces: Moderate degenerative disc disease T10-11 and mild degenerative disc disease T11-T12 through L5-S1 again noted. Severe L2-3 through L5-S1 degenerative facet disease Soft tissues: No soft tissue swelling, calcification or mass. IMPRESSION: Multiple osteoporotic compression fractures which have progressed considerably since comparison exam less than 1 year ago. Grade 1 L4-5 spondylolisthesis due to degenerate facet disease worsening Degeneration Dictated by: Blue Noonan M.D. on 05/31/2025 at 11:25 Approved by: Blue Noonan M.D. on 05/31/2025 at 11:31
== END ==
PROVIDERS: Family Provider Internal Medicine; PCP Internal Medicine; Referring Provider Internal Medicine; Visit Provider Internal Medicine
DX: M80.88XA Other osteoporosis with current pathological fracture, vertebra(e), initial encounter for fracture (principal); M51.34 Other intervertebral disc degeneration, thoracic region; M51.369 Other intervertebral disc degeneration, lumbar region without mention of lumbar back pain or lower extremity pain; M51.379 Other intervertebral disc degeneration, lumbosacral region without mention of lumbar back pain or lower extremity pain; M47.816 Spondylosis without myelopathy or radiculopathy, lumbar region; M47.817 Spondylosis without myelopathy or radiculopathy, lumbosacral region; M54.9 Dorsalgia, unspecified
CPT/HCPCS: 72100

== ENCOUNTER → 2025-06-21 12:39 | Outpatient (CLI) | payer MEDICARE, SELFPAY ==
--- NOTE | 2025-06-21 12:41 | DI.RAD.S_ITS ---
PROCEDURE: XR DEXA AXIAL SKELETON INDICATIONS: Osteoporosis Screening COMPARISON: [facility], CR, XR DEXA AXIAL SKELETON, 10/07/2018, 13:05. FINDINGS: Lumbar Spine: Bone mineral density 0.916 (previously 0.902) g/cm2, T score -1.2 (previously-2.3). Left Femoral Neck: Bone mineral density 0.500 (previously 0.716) g/cm2, T score -3.1 (previously-2.3). Left Hip: Bone mineral density 0.634 (previously 0.781) g/cm2, T score -2.5 (previously-1.8). Fracture Risk Calculation (when applicable): 10-year fracture risk of a major osteoporotic fracture 23 percent and of a hip fracture 9.9 percent. IMPRESSION: Osteoporosis Follow-up guidelines as follows: Osteoporosis: Consider a repeat DEXA and Vertebral Fracture Assessment (VFA) exam in 2 years or sooner if medically necessary, to reassess this patient's status. Osteopenia: Consider a repeat DEXA in 2-3 years to reassess this patient's status, or if there is a new clinical indication. Normal: Consider a repeat DEXA in 5 years or sooner, or if there is a new clinical indication. All treatment decisions require clinical judgment and consideration of individual patient factors, including patient preferences, comorbidities, previous drug use, risk factors not captured in the FRAX model (e.g., frailty, falls, vitamin D deficiency, increased bone turnover, interval significant decline in bone density ) and possible under- or over-estimation of fracture risk by FRAX. In addition, the NOF Guide recommends that FDA-approved medical therapies be considered in postmenopausal women and men age >= 50 years with a: * Hip or vertebral (clinical or morphometric) fracture * T-score of <=-2.5 at the spine or hip * Ten-year fracture probability by FRAX of >= 3% for hip fracture or >=20% for major osteoporotic fracture. Dictated by: Michael Amezquita M.D. on 06/23/2025 at 23:06 Approved by: Michael Amezquita M.D. on 06/23/2025 at 23:08
--- NOTE | 2025-06-21 12:42 | DI.MRI.S_ITS ---
PROCEDURE: MR LUMBAR SPINE WO CON INDICATIONS: BACK PAIN TECHNIQUE: Noncontrast sagittal T1 spin echo and T2 fast echo, sagittal STIR, and T2 fast spin echo through the lumbar spine. In cases with scoliosis, additional coronal T2 fast spin echo may be performed. COMPARISON: [facility], CT, CT ABDOMEN PELVIS W CON, 04/15/2021, 13:59. FINDINGS: Image quality: Excellent Straightening the lumbar spine. Grade 1 anterolisthesis of L3 on L4, L4 on L5. Severe compression fracture of T12 with marrow edema, acute. Moderate retropulsion of posterior T12 vertebral body. Mild superior endplate fracture of L2, with diffuse marrow edema, acute. Mild retropulsion posterior L2 vertebral body. Moderate superior endplate fracture of L3, chronic. Mild retropulsion of posterior L3 vertebral body. Severe compression fracture of L4 vertebral body, with diffuse marrow edema, acute. Moderate avulsion posterior L4 vertebral body. Additional multilevel mild fibrovascular changes. Multilevel disc bulge and disc desiccation. Conus terminates at the level L1-2, and is unremarkable. Right neural foraminal stenosis: Moderate at T10-T11, T11-T12, T12-L1. Mild at L1-2, L2-3, moderate at L3-4, mild at L4-5, and L5-S1. Left neural foraminal stenosis: Mild at T12-L1, L1-2, L2-3, moderate at L3-4, mild at L4-5, and L5-S1. Axial images: T10-T11: Disc bulge. No central canal stenosis. T11-T12: Retropulsion of posterior T12 vertebral body. Mild bilateral facet arthropathy. Moderate central canal stenosis. T12-L1: Bilateral facet arthropathy. No central canal stenosis. L1-2: Bilateral facet arthropathy. Retropulsion of posterior L2 vertebral body. Moderate central canal stenosis. L2-3: Bilateral facet arthropathy. Mild retropulsion of posterior L3 vertebral body. Moderate central canal stenosis. L3-4: Retropulsion posterior L4 vertebral body. Moderate to severe central canal stenosis. Bilateral facet arthropathy. L4-5: Posterior disc uncovering. Severe bilateral facet arthropathy. Mild central canal stenosis. L5-S1: No central canal stenosis. Bilateral facet arthropathy. Visualized sacrum is intact. No abdominal aortic aneurysm. Large cyst in the right manoj liver. Bilateral renal cysts, some which are peripelvic. IMPRESSION: 1. Multilevel chronic and acute compression fracture of the lumbar spine, and T12 as described above. 2. Multilevel up to moderate central canal stenosis in the lumbar spine and the lower thoracic spine. 3. Multilevel up to moderate neural foraminal stenosis as described above. Dictated by: Shanna Espinoza M.D. on 06/22/2025 at 10:51 Approved by: Shanna Espinoza M.D. on 06/22/2025 at 11:05
== END ==
PROVIDERS: Family Provider Internal Medicine; PCP Internal Medicine; Referring Provider Internal Medicine; Visit Provider Physician Assistant
DX: S32.010A Wedge compression fracture of first lumbar vertebra, initial encounter for closed fracture (principal); S32.020G Wedge compression fracture of second lumbar vertebra, subsequent encounter for fracture with delayed healing; S32.030A Wedge compression fracture of third lumbar vertebra, initial encounter for closed fracture; S32.040G Wedge compression fracture of fourth lumbar vertebra, subsequent encounter for fracture with delayed healing; S22.080G Wedge compression fracture of T11-T12 vertebra, subsequent encounter for fracture with delayed healing; M51.35 Other intervertebral disc degeneration, thoracolumbar region; M47.815 Spondylosis without myelopathy or radiculopathy, thoracolumbar region; M48.05 Spinal stenosis, thoracolumbar region; M47.816 Spondylosis without myelopathy or radiculopathy, lumbar region; M48.061 Spinal stenosis, lumbar region without neurogenic claudication; M51.369 Other intervertebral disc degeneration, lumbar region without mention of lumbar back pain or lower extremity pain; M47.817 Spondylosis without myelopathy or radiculopathy, lumbosacral region; M80.08XA Age-related osteoporosis with current pathological fracture, vertebra(e), initial encounter for fracture; M85.89 Other specified disorders of bone density and structure, multiple sites; K76.89 Other specified diseases of liver; N28.1 Cyst of kidney, acquired
CPT/HCPCS: 72148; 77080